=== PATIENT | female | born 1980 | race American Indian/Alaskan Native ===

== ENCOUNTER 2021-03-17 18:42 | Outpatient (CLI) | payer SELFPAY ==
[2021-03-17 19:27] VITALS: BP 129/69
--- NOTE | 2021-03-17 21:18 | Ultrasound Report ---
ULTRASOUND BIOPHYSICAL PROFILE INDICATION / CLINICAL INFORMATION: well being. Clinical Gestational Age (GA) in weeks, days: 40 weeks TECHNIQUE: Transabdominal. COMPARISON: None available. FINDINGS: BREATHING MOVEMENT = 2 GROSS BODY MOVEMENT = 2 TONE = 2 QUALITATIVE AMNIOTIC FLUID VOLUME = 2 TOTAL BIOPHYSICAL SCORE = 8/8 HEART RATE (beats per minute): 63 ADDITIONAL FINDINGS: Cephalic presentation. IMPRESSION: 1. Biophysical Score = 8/8 Signer Name: Aixa Richard MD Signed: 03/17/2021 9:14 PM Workstation Name: [id number]
== END 2021-03-18 00:29 | disposition home or self-care (01) ==
LOC: TRG 18:42 → APU 18:46 → TRG 03-18 00:29
PROVIDERS: ATTEND Obstetrics & Gynecology
DX: O09.893 Supervision of other high risk pregnancies, third trimester (principal); Z3A.40 40 weeks gestation of pregnancy
CPT/HCPCS: 59025; 76819